=== PATIENT | male | born 1950 | race Hispanic/Latino ===

== ENCOUNTER 2019-01-01 08:51 | Outpatient (CLI) | payer MEDICARE, OTHER ==
--- NOTE | 2019-01-01 10:55 | RAD ---
CERVICAL SPINE FOUR VIEWS: HISTORY: Degenerative disk disease. Pain. COMPARISON: 11/29/2007 FINDINGS: AP, lateral neutral, lateral flexion, and lateral extension cervical spine radiograph series demonstr ates an anterior fusion plate at C4 and C5. No perihardware lucency. There is an associate disk pro sthesis. Moderate degenerative changes at C5-C6 and moderate to severe degenerative changes at C6-C7 . In the neutral position, no malalignment. No abnormal motion upon extension or flexion. IMPRESSION: 1. Uncomplicated cervical fusion. 2. Moderate degenerative change at C5-C6 and moderate to severe degenerative change at C6-C7. POS: OFF
== END 2019-01-01 08:52 | disposition home or self-care (01) ==
LOC: BICMRI 08:51
PROVIDERS: ATTEND Neurological Surgery
DX: M50.30 Other cervical disc degeneration, unspecified cervical region (principal); Z98.1 Arthrodesis status; M47.22 Other spondylosis with radiculopathy, cervical region
CPT/HCPCS: 72050

== ENCOUNTER 2019-01-31 09:44 | Day surgery (SDC) | payer MEDICARE, OTHER ==
[2019-01-30 14:56] VITALS: BMI 29.6
[2019-01-31] MEDS ORDERED: Fentanyl 100 MCG/2 ML VIAL ONE (11:59)
[2019-01-31] MEDS ORDERED: Midazolam HCl 2 mg/2 ml Vial ONE (11:59)
--- NOTE | 2019-01-31 14:06 | MRI ---
MRI CERVICAL SPINE WITHOUT CONTRAST: HISTORY: Left neck pain. Bilateral hand and finger numbness.. COMPARISON: None. FINDINGS: Metallic susceptibility artifact secondary to an anterior fusion at C4 and C5. There is a prosthesis at the C4-C5 disc space. Straightening of normal cervical lordosis may be due to fusion, muscle spasm or patient position. No significant STIR hyperintensity to suggest vertebral body edema or ligamentous injury. Visualized brain parenchyma, cervicomedullary, cervical cord, and the upper thoracic cord have a norm al size and signal intensity. C2-C3: Small left paracentral disc osteophyte complex. No significant central canal stenosis or signi ficant neural foraminal narrowing. C3-C4: Broad-based disc bulge abuts the thecal sac. Subarachnoid space is maintained. No significant central canal stenosis. Moderate right and left foraminal narrowing due to uncovertebral hypertrophy. C4-C5: Broad-based osteophyte ridge without significant central canal stenosis. Moderate right forami nal narrowing due to uncovertebral hypertrophy. Left neural foramen is patent. C5-C6: Broad-based disk-complex. Subarachnoid space is effaced. Flattening of the cervical cord, with out cord hyperintensity. Moderate central canal stenosis. Severe bilateral foraminal narrowing due to uncovertebral hypertrophy. C6-C7: Broad-based disc osteophyte complex. Mild central canal stenosis. Severe right and moderate le ft foraminal narrowing due to uncovertebral hypertrophy. C7-T1: No significant central canal stenosis. Moderate bilateral neural foraminal narrowing. IMPRESSION: Degenerative changes and postsurgical changes of the cervical spine as detailed above. Transcribed Date/Time: 01/31/2019 3:27 PM
--- NOTE | 2019-01-31 17:01 | EKG ---
Test Reason : PRE-MRI Blood Pressure : / mmHG Vent. Rate : 061 BPM Atrial Rate : 061 BPM P-R Int : 162 ms QRS Dur : 150 ms QT Int : 464 ms P-R-T Axes : 033 052 021 degrees QTc Int : 467 ms Normal sinus rhythm Right bundle branch block Abnormal ECG When compared with ECG of 02-OCT-2007 10:37, T wave inversion no longer evident in Anterior leads Confirmed by DR. Alo MCKEON ([id number]) on 01/31/2019 5:00:57 PM Referred By: ROSAURA Confirmed By:DR. Alo MCKEON
== END 2019-01-31 14:55 | disposition home or self-care (01) ==
LOC: SDC/OP 09:44
PROVIDERS: ATTEND Neurological Surgery
DX: M47.812 Spondylosis without myelopathy or radiculopathy, cervical region (principal); I10 Essential (primary) hypertension; E78.00 Pure hypercholesterolemia, unspecified; Z79.899 Other long term (current) drug therapy
CPT/HCPCS: 72141; 93005; 93010; J2250; J3010

== ENCOUNTER 2020-08-15 21:20 | Emergency (ER) | payer MEDICARE, OTHER ==
[2020-08-15 22:43] LABS: #Eosinphils 0.1 thou/uL (0.0-0.7); #Lymphocytes 2.4 thou/uL (1.20-3.40); #Monocytes 0.4 thou/uL (0.11-0.59); #Neutrophils 2.3 thou/uL (1.40-6.50); %Basophils 0.2 % (0.0-1.0); %Monocytes 7.2 % (0.0-10.0); %Neutrophils 44.6 % (42.0-75.0); Hemoglobin 13.7 g/dL (14.0-18.0); Mean Corpuscular HGB CONC 35.1 g/dL (32.0-36.0); Mean Corpuscular Hemoglobin 32.4 pg (27.0-31.0); Mean Corpuscular Volume 92.3 fL (78.0-98.0); Mean Platelet Volume 7.1 fL (7.4-10.4); Platelet Count 221 thou/uL (130-400); Red Blood Cell (RBC) Count 4.22 mill/uL (4.70-6.10); White Blood Cell (WBC) Count 5.1 thou/uL (4.8-10.8)
[2020-08-15 22:57] LABS: ALT (SGPT) 35 U/L (8-55); AST (SGOT) 19 U/L (5-34); Albumin 4.1 g/dL (3.4-4.8); Alkaline Phosphatase 74 U/L (40-110); Anion Gap 17 mmol/L (10-20); BUN (Urea Nitrogen) 9 mg/dL (8.4-25.7); Bilirubin, Total 0.2 mg/dL (0.2-1.2); Calc. Creatinine Clearance 0 mL/min (70-130); Carbon Dioxide 22 mmol/L (23-31); Chloride 106 mmol/L (98-107); Globulin 2.5 g/dL (2.4-3.5); Glucose 125 mg/dL (80-115); Potassium 3.7 mmol/L (3.5-5.1); Protein, Total 6.6 g/dL (5.8-8.1); Sodium 141 mmol/L (136-145)
== END 2020-08-15 23:42 | disposition short-term general hospital (02) ==
LOC: ERS 21:20
DX: R55 Syncope and collapse (principal); R05 Cough; E11.9 Type 2 diabetes mellitus without complications; E78.00 Pure hypercholesterolemia, unspecified; I10 Essential (primary) hypertension; Z79.84 Long term (current) use of oral hypoglycemic drugs; Z79.899 Other long term (current) drug therapy
CPT/HCPCS: 36415; 71045; 80053; 83880; 84484; 85025; 85379; 93005

== ENCOUNTER 2021-10-04 10:16 | Outpatient (CLI) | payer MEDICARE, OTHER | END 2021-10-04 10:17 | disposition home or self-care (01) | LOC: BICULT 10:16 | PROVIDERS: ATTEND Physician Assistant Medical | DX: R10.11 Right upper quadrant pain (principal); R14.0 Abdominal distension (gaseous); K59.00 Constipation, unspecified | CPT/HCPCS: 76705 ==

== ENCOUNTER 2021-10-12 11:12 | Emergency (ER) | payer MEDICARE, OTHER ==
[2021-10-12] MEDS ORDERED: Ondansetron PF 4 MG/2 ML Vial ONE (12:17)
[2021-10-12] MEDS ORDERED: Morphine 4 MG/ML VIAL ONE (12:17)
[2021-10-12 12:32] LABS: #Lymphocytes 1.5 thou/uL (1.20-3.40); #Monocytes 0.3 thou/uL (0.11-0.59); %Basophils 0.6 % (0.0-1.0); %Eosinophils 1.1 % (0.0-10.0); %Lymphocytes 38.9 % (21.0-51.0); %Neutrophils 52.5 % (42.0-75.0); Hemoglobin 13.6 g/dL (14.0-18.0); Mean Corpuscular Hemoglobin 31.7 pg (27.0-31.0); Mean Corpuscular Volume 96.1 fL (78.0-98.0); Platelet Count 203 thou/uL (130-400); RBC Distribution Width 12.2 % (11.5-14.5); Red Blood Cell (RBC) Count 4.29 mill/uL (4.70-6.10); White Blood Cell (WBC) Count 3.9 thou/uL (4.8-10.8)
[2021-10-12 12:57] LABS: ALT (SGPT) 33 U/L (8-55); AST (SGOT) 18 U/L (5-34); Albumin 3.9 g/dL (3.4-4.8); Alkaline Phosphatase 72 U/L (40-110); Anion Gap 11 mmol/L (10-20); BUN (Urea Nitrogen) 8 mg/dL (8.4-25.7); Bilirubin, Total 0.4 mg/dL (0.2-1.2); Calc. Creatinine Clearance 0 mL/min (70-130); Carbon Dioxide 26 mmol/L (23-31); Chloride 105 mmol/L (98-107); Globulin 2.7 g/dL (2.4-3.5); Glucose 175 mg/dL (80-115); Lipase 23 U/L (8-78); Protein, Total 6.6 g/dL (5.8-8.1); Sodium 138 mmol/L (136-145)
[2021-10-12] MEDS ORDERED: Lidocaine Viscous Sol 2% 15 ml UD Cup ONE (13:57)
[2021-10-12] MEDS ORDERED: Mag-Al 1200 mg/1200 mg/30 ML UDCUP ONE (13:57)
== END 2021-10-12 15:04 | disposition home or self-care (01) ==
LOC: ERS 11:12
DX: R10.13 Epigastric pain (principal); R10.33 Periumbilical pain; E78.5 Hyperlipidemia, unspecified; I10 Essential (primary) hypertension; E11.9 Type 2 diabetes mellitus without complications
CPT/HCPCS: 74177; 76705; 80053; 83605; 83690; 84484; 85025; 93005; 96374; 96375; J2270; J2405

== ENCOUNTER 2021-10-28 07:10 | Outpatient (CLI) | payer MEDICARE, OTHER | END 2021-10-28 07:11 | disposition home or self-care (01) | LOC: NM 07:10 | PROVIDERS: ATTEND Physician Assistant Medical | DX: R10.11 Right upper quadrant pain (principal); D64.9 Anemia, unspecified | CPT/HCPCS: 78227; A9537 ==

== ENCOUNTER 2022-01-09 10:03 | Outpatient (CLI) | payer MEDICARE, OTHER | END 2022-01-09 10:04 | disposition home or self-care (01) | LOC: LABBT 10:03 | PROVIDERS: ATTEND Physical Medicine & Rehabilitation | DX: Z20.822 Contact with and (suspected) exposure to COVID-19 (principal) | CPT/HCPCS: 87811 ==

== ENCOUNTER 2022-01-13 09:49 | Day surgery (SDC) | payer MEDICARE, OTHER ==
[2022-01-11 15:54] VITALS: BMI 30.2
[2022-01-13] MEDS ORDERED: Midazolam HCl 2 mg/2 ml Vial ONE (12:00)
[2022-01-13] MEDS ORDERED: Lidocaine 2% Jelly 5 ML TUBE ONE (12:10)
[2022-01-13] MEDS ORDERED: ePHEDrine 50 MG/ML VIAL ONE (12:30)
[2022-01-13] MEDS ORDERED: Lidocaine 1% MPF 2 ML VIAL ONE (12:30)
[2022-01-13] MEDS ORDERED: PROPOFOL 200 MG/20 ML VIAL ONE (12:30)
[2022-01-13] MEDS ORDERED: Ondansetron PF 4 MG/2 ML Vial ONE (12:30)
== END 2022-01-13 14:38 | disposition home or self-care (01) ==
LOC: MRI 09:49 → EDSTATUS 12:00 → MRI 14:38
PROVIDERS: ATTEND Neurological Surgery
DX: M47.812 Spondylosis without myelopathy or radiculopathy, cervical region (principal); M50.31 Other cervical disc degeneration, high cervical region; M48.02 Spinal stenosis, cervical region; M47.815 Spondylosis without myelopathy or radiculopathy, thoracolumbar region; M48.05 Spinal stenosis, thoracolumbar region; M47.816 Spondylosis without myelopathy or radiculopathy, lumbar region; M48.061 Spinal stenosis, lumbar region without neurogenic claudication; M51.26 Other intervertebral disc displacement, lumbar region; M51.36 Other intervertebral disc degeneration, lumbar region; M51.37 Other intervertebral disc degeneration, lumbosacral region; M47.817 Spondylosis without myelopathy or radiculopathy, lumbosacral region; M48.07 Spinal stenosis, lumbosacral region; I10 Essential (primary) hypertension; K21.9 Gastro-esophageal reflux disease without esophagitis; E11.9 Type 2 diabetes mellitus without complications; G47.33 Obstructive sleep apnea (adult) (pediatric); Z79.899 Other long term (current) drug therapy
CPT/HCPCS: 72141; 72148; J2250; J2405; J2704; J3490

== ENCOUNTER 2023-04-05 09:18 | Day surgery (SDC) | payer MEDICARE, OTHER ==
[~2023-04-05 09:18] MED LIST: Fluorouracil 100 MG, Enoxaparin 25 MG, EPINEPHrine 0.3 MG in Ophthalmic Irrigation Solu... IRR SCH
[2023-04-05] MEDS ORDERED: PHENYLephrine 2.5% Ophth Soln 15 ml Bottle ONE (10:02)
[2023-04-05] MEDS ORDERED: Cyclopentolate 1% Opth Drop 2 ML BOT ONE (10:02)
[2023-04-05] MEDS ORDERED: Maxitrol 0.1% Opth Oint 3.5 GM TUBE ONE (11:18)
[2023-04-05] MEDS ORDERED: Lidocaine 4% PF 5 ML AMP ONE (11:18)
[2023-04-05] MEDS ORDERED: PROPOFOL 200 MG/20 ML VIAL ONE (11:18)
[2023-04-05] MEDS ORDERED: CEFAZOLIN 1 GM VIAL ONE (11:18)
[2023-04-05] MEDS ORDERED: Lidocaine 1% PF 5 ML VIAL ONE (11:18)
[2023-04-05] MEDS ORDERED: Bupivacaine 0.75% 10 ML VIAL ONE (11:18)
[2023-04-05] MEDS ORDERED: Triamcinolone 40 MG/ML VIAL ONE (11:18)
== END 2023-04-05 13:05 | disposition home or self-care (01) ==
LOC: SDC 09:18
PROVIDERS: ATTEND Ophthalmology Retina Specialist
PROC: 08943ZZ Drainage of Right Vitreous, Percutaneous Approach (ICD-10-PCS; principal; 2023-04-05)
DX: H33.021 Retinal detachment with multiple breaks, right eye (principal)
CPT/HCPCS: C1814; J0171; J0690; J1650; J2704; J3301; J3490; J9190

== ENCOUNTER 2023-08-02 06:16 | Day surgery (SDC) | payer MEDICARE, OTHER ==
[2023-08-01 11:33] VITALS: BMI 27.4
[~2023-08-02 06:16] MED LIST changes: +EPINEPHrine 0.3 MG in Ophthalmic Irrigation Solution 500 ML IRR SCH; -Fluorouracil 100 MG, Enoxaparin 25 MG, EPINEPHrine 0.3 MG in Ophthalmic Irrigation Solu... IRR SCH
[2023-08-02] MEDS ORDERED: PHENYLephrine 2.5% Ophth Soln 15 ml Bottle ONE (06:50)
[2023-08-02] MEDS ORDERED: Cyclopentolate 0.5% Opth Drops 15 ML BOT ONE (06:51)
[2023-08-02] MEDS ORDERED: Midazolam HCl 2 mg/2 ml Vial ONE (07:16)
[2023-08-02] MEDS ORDERED: fentaNYL 50 mcg/mL 1 mL Vial ONE (07:16)
[2023-08-02] MEDS ORDERED: Maxitrol 0.1% Opth Oint 3.5 GM TUBE ONE (07:35)
[2023-08-02] MEDS ORDERED: Lidocaine 1% PF 5 ML VIAL ONE (07:35)
[2023-08-02] MEDS ORDERED: Bupivacaine 0.75% 10 ML VIAL ONE (07:35)
[2023-08-02] MEDS ORDERED: Lidocaine 4% PF 5 ML AMP ONE (07:35)
[2023-08-02] MEDS ORDERED: Triamcinolone 40 MG/ML VIAL ONE (07:35)
[2023-08-02] MEDS ORDERED: PROPOFOL 200 MG/20 ML VIAL ONE (07:35)
[2023-08-02] MEDS ORDERED: CEFAZOLIN 1 GM VIAL ONE (07:35)
== END 2023-08-02 08:58 | disposition home or self-care (01) ==
LOC: SDC 06:16
PROVIDERS: ATTEND Ophthalmology Retina Specialist
PROC: 08T43ZZ Resection of Right Vitreous, Percutaneous Approach (ICD-10-PCS; principal; 2023-08-02)
PROC: 08NE3ZZ Release Right Retina, Percutaneous Approach (ICD-10-PCS; 2023-08-02)
DX: H43.391 Other vitreous opacities, right eye (principal)
CPT/HCPCS: 67041; J3010; J0171; J0690; J2250; J2704; J3301; J3490